=== PATIENT | female | born 1970 | race Caucasian/White ===

== ENCOUNTER 2017-10-14 08:04 | Day surgery (SDC) | payer BC, MEDICAID ==
[~2017-10-14 08:04] MED LIST: ACETAMINOPHEN 1,000 MG/100 ML BTL IV ONE
[2017-10-14] MEDS ORDERED: *PACU ONLY* KETAMINE HCL 10 MG/ML (20ML) VIAL IV ONE (08:05)
[2017-10-14] MEDS ORDERED: LIDOCAINE 2% MDV (20MG/ML) 20ML VIAL IV ONE (08:05)
[2017-10-14] MEDS ORDERED: KETOROLAC 30 MG/ML VIAL IVP ONE (08:05)
[2017-10-14] MEDS ORDERED: LABETALOL HCL 5MG/ML, 20ML VIAL IV ONE (08:05)
[2017-10-14] MEDS ORDERED: ONDANSETRON HCL IV 4 MG/2 ML VIAL IVP ONE (08:05)
[2017-10-14] MEDS ORDERED: PROPOFOL 10 MG/ML VIAL IV ONE (08:05)
[2017-10-14] MEDS ORDERED: BUPIVACAINE 0.25% W/EPI MPF 30ML VIAL IVP ONE (08:05)
[2017-10-14] MEDS ORDERED: TRAMADOL HCL 50 MG TABLET PO ONE (08:05)
--- NOTE | 2017-10-15 12:40 | Operative Note ---
DATE OF SURGERY: 10/14/2017 Surgeon: Kiel Taylor DO PREOPERATIVE DIAGNOSES: 1. Torn lateral meniscus of the left knee. 2. Chondromalacia of the left knee. POSTOPERATIVE DIAGNOSES: 1. Torn lateral meniscus, left knee. 2. Chondromalacia of the medial femoral condyle, lateral femoral condyle, and patella, left knee and the trochlea, left knee. 3. Synovitis, left knee (2 compartments). OPERATION: 1. Arthroscopic partial lateral meniscectomy, left knee. 2. Arthroscopic partial synovectomy, left knee (2 compartments). 3. Arthroscopic chondroplasty of medial femoral condyle, lateral femoral condyle, patella, and trochlea, left knee. DESCRIPTION OF PROCEDURE: This 47-year-old female was taken to the operating room and placed in the supine position on the operating room table where general anesthesia was induced. The left lower extremity was elevated. It was exsanguinated and the tourniquet inflated to 300 mmHg. Arthroscopic knee amaya applied and the left knee prepped with Hibiclens and draped in the usual sterile fashion. An inferolateral portal was established for the 4 mm arthroscope, and initial evaluation of the joint demonstrated normal appearance of the suprapatellar pouch but there was grade 2 chondromalacia of the patellofemoral articulation with an area of approximately 1.5 to 2 cm wide down the center of the trochlea which was unstable and chondroplasty was performed. The entire patella was also involved in this condition being grade 2 throughout, and we removed unstable fragments. The medial compartment was entered and a relatively large area of grade 3 chondromalacia was noted in the medial femoral condyle with a swath of about 1.5 cm down the center longitudinal from front to back was noted down the center of the weightbearing surface. The edges of this were smoothed with the rotating shaver to stabilize the loose flaps of articular cartilage. In addition, there was intense synovitis present and this was debrided in the anterior, medial, and late compartments. The intracondylar notch was examined and found to be normal. The lateral compartment was entered, and a severe tear of the lateral meniscus was present with both flap and horizontal cleavage components. Utilizing the basket forceps, we resected back to the apex of the tear being at approximately the 1:30 to 2-o'clock position very near the meniscosynovial junction. We then tapered in each direction to restore stability to the lateral meniscus. It was re-probed and confirmed to be stable. Grade 2 chondromalacia noted throughout the entire articulating surface of the lateral tibial plateau and lateral femoral condyle. The joint was then copiously irrigated and suctioned with all areas being reevaluated and probed. No additional findings were present. This joint was suctioned. The instruments were removed. The patient taken to the recovery room in satisfactory condition. GROSS PATHOLOGY: The patient demonstrated synovitis of the knee with a macerated tear of the lateral meniscus and arthritic change with grade 3 changes on the medial side in the medial femoral condyle and grade 2 changes noted elsewhere as described. JULIO C
== END 2017-10-14 11:15 | disposition home or self-care (01) ==
LOC: SUR 08:04
PROVIDERS: ATTEND Orthopaedic Surgery
DX: M94.262 Chondromalacia, left knee (principal); M22.42 Chondromalacia patellae, left knee; M65.862 Other synovitis and tenosynovitis, left lower leg
CPT/HCPCS: 29881; 29876; 01400; 81025; J1885; J2405